=== PATIENT | female | born 1980 | race African-American/Black ===

== ENCOUNTER 2017-01-09 14:24 | Outpatient (CLI) | payer OTHER ==
[~2017-01-09 14:24] MED LIST: VITAMIN D31000 UNIT PO
[2017-01-09 15:58] LABS: HEMOGLOBIN 4.1 gm/dl (12.3-15.3)
== END 2017-01-10 00:28 | disposition home or self-care (01) ==
LOC: OPSV 14:24 → MED SURG 4 16:37 → OPSV 01-10 00:28
PROVIDERS: Internal Medicine Hematology & Oncology
DX: D64.9 Anemia, unspecified (principal)
CPT/HCPCS: 36415; 36430; 80053; 82607; 82728; 82747; 83540; 83921; 84238; 85014; 85018; 86850; 86900; 86901; 86920; 96374; J1940; P9016; Q0163

== ENCOUNTER 2017-03-13 14:46 | Inpatient (IN) | payer OTHER ==
[~2017-03-13] VITALS: Ht 152.4 cm; Wt 35.5 kg
[~2017-03-13 14:46] MED LIST changes: -ACID CONTROL150 MG PO; -ARTHRITIS PAIN650 M1 PO; -CALCIUM CITRAT200 MG PO; -CELEXA10 MG PO; -CO Q-10200 MG PO; -EPITOL200 MG PO; -LIPITOR TAB 2020 MG PO; -LOVAZA1 GM PO; -NEURONTIN 400400 MG PO; -VITAMIN C 500500 MG PO; -VITAMIN D31000 UNI1 PO
[2017-03-13 16:29] LABS: RED BLOOD COUNT 1.2 M/UL (4.00-5.10); WHITE BLOOD COUNT 3.1 K/UL (4.5-11.0)
[2017-03-13 16:49] LABS: BUN/CREATININE RATIO 35 (0-10)
[2017-03-13] MEDS ORDERED: ACID CONTROL150 MG PO (20:55)
[2017-03-13] MEDS ORDERED: EPITOL200 MG PO (20:56)
[2017-03-13] MEDS ORDERED: NEURONTIN 400400 MG PO (20:56)
[2017-03-13] MEDS ORDERED: LOVAZA1 GM PO (20:56)
[2017-03-13] MEDS ORDERED: CELEXA10 MG PO (20:57)
[2017-03-13] MEDS ORDERED: ARTHRITIS PAIN650 M1 PO (20:59)
[2017-03-13] MEDS ORDERED: LIPITOR TAB 2020 MG PO (20:59)
[2017-03-13] MEDS ORDERED: VITAMIN C 500500 MG PO (21:00)
[2017-03-13] MEDS ORDERED: VITAMIN D31000 UNI1 PO (21:00)
[2017-03-13] MEDS ORDERED: CO Q-10200 MG PO (21:00)
[2017-03-13] MEDS ORDERED: CALCIUM CITRAT200 MG PO (21:02)
[2017-03-14 09:57] LABS: BUN/CREATININE RATIO 40 (0-10)
[2017-03-14 10:00] LABS: WHITE BLOOD COUNT 3.1 K/UL (4.5-11.0)
[2017-03-14 10:16] LABS: HEMOGLOBIN 10.9 gm/dl (12.3-15.3); RED BLOOD COUNT 3.55 M/UL (4.00-5.10)
== END 2017-03-14 16:37 | disposition home or self-care (01) | DRG 812 ==
LOC: ER1 14:46 → M/S 17:20 → ZEROF 17:20 → M/S 20:32
PROVIDERS: Physician Assistant; ADMIT Hospitalist
PROC: 30233H1 Transfusion of Nonautologous Whole Blood into Peripheral Vein, Percutaneous Approach (ICD-10-PCS; principal; 2017-03-13)
DX: D64.9 Anemia, unspecified (principal); G91.9 Hydrocephalus, unspecified; G81.91 Hemiplegia, unspecified affecting right dominant side; E78.1 Pure hyperglyceridemia; G40.909 Epilepsy, unspecified, not intractable, without status epilepticus; Z90.710 Acquired absence of both cervix and uterus; Z79.899 Other long term (current) drug therapy; Z83.3 Family history of diabetes mellitus; Z84.89 Family history of other specified conditions; Z82.49 Family history of ischemic heart disease and other diseases of the circulatory system
CPT/HCPCS: 36415; 36430; 80048; 80053; 82272; 85025; 85610; 85730; 86850; 86900; 86901; 86920; 99283; C9113; J7050; P9016

== ENCOUNTER → 2017-03-13 | Outpatient (CLI) | payer OTHER ==
[~2017-03-13] MED LIST changes: +ACID CONTROL150 MG PO; +ARTHRITIS PAIN650 M1 PO; +CALCIUM CITRAT200 MG PO; +CELEXA10 MG PO; +CO Q-10200 MG PO; +EPITOL200 MG PO; +LIPITOR TAB 2020 MG PO; +LOVAZA1 GM PO; +NEURONTIN 400400 MG PO; +VITAMIN C 500500 MG PO; +VITAMIN D31000 UNI1 PO
[2017-03-13 14:06] LABS: RED BLOOD COUNT 1.2 M/UL (4.00-5.10); WHITE BLOOD COUNT 3.2 K/UL (4.5-11.0)
[2017-03-13 14:13] LABS: HEMOGLOBIN 3.6 gm/dl (12.3-15.3)
== END ==
LOC: LAB 13:30
PROVIDERS: Internal Medicine Hematology & Oncology
DX: D53.9 Nutritional anemia, unspecified (principal)
CPT/HCPCS: 36415; 85025

== ENCOUNTER 2017-06-25 15:30 | Outpatient (CLI) | payer OTHER ==
[~2017-06-25] VITALS: Ht 152.4 cm; Wt 38.6 kg
[~2017-06-25 15:30] MED LIST changes: +ACID CONTROL150 MG PO; +ARTHRITIS PAIN650 M1 PO; +CALCIUM CITRAT200 MG PO; +CELEXA10 MG PO; +CO Q-10200 MG PO; +EPITOL200 MG PO; +LIPITOR TAB 2020 MG PO; +LOVAZA1 GM PO; +NEURONTIN 400400 MG PO; +VITAMIN C 500500 MG PO; +VITAMIN D31000 UNI1 PO
[2017-06-25 17:12] LABS: HEMOGLOBIN 4.5 gm/dl (12.3-15.3)
== END 2017-06-26 00:30 | disposition home or self-care (01) ==
LOC: OPSV 15:30
PROVIDERS: Internal Medicine Hematology & Oncology
DX: D64.9 Anemia, unspecified (principal)
CPT/HCPCS: 36415; 36430; 85014; 85018; 86850; 86900; 86901; 86920; 96374; J1940; J7050; P9016; Q0163

== ENCOUNTER → 2021-05-31 | Outpatient (CLI) | payer OTHER ==
[~2021-05-31] MED LIST changes: +BANOPHEN25 M1 PO; +CALTRATE 600 +1 EAC1 PO; +CELEXA20 MG PO; +FENOFIBRIC ACI135 MG PO; +LACTULOSE20 GM/30 M PO; +NORCO 5-325 TA1 EACH PO; +VITAMIN D250000 UNIT PO; +ZANTAC150 MG PO
[2021-05-31 14:08] LABS: RED BLOOD COUNT 3.03 M/UL (4.00-5.10); WHITE BLOOD COUNT 4.4 K/UL (4.5-11.0)
[2021-05-31 15:21] LABS: BUN/CREATININE RATIO 23 (0-10)
== END ==
LOC: LAB 13:08 → OPSV 13:08
PROVIDERS: Family Medicine
DX: E78.5 Hyperlipidemia, unspecified (principal); E55.9 Vitamin D deficiency, unspecified
CPT/HCPCS: 36415; 80053; 80061; 84439; 84443; 84481; 85027

== ENCOUNTER → 2022-07-03 | Outpatient (CLI) | payer OTHER | LOC: EXRD 05-19 10:30 | DX: M81.0 Age-related osteoporosis without current pathological fracture (principal); M85.851 Other specified disorders of bone density and structure, right thigh | CPT/HCPCS: 77080 ==

== ENCOUNTER → 2022-07-11 | Outpatient (CLI) | payer OTHER ==
[2022-07-11 12:22] LABS: HEMOGLOBIN 12.7 gm/dl (12.3-15.3); RED BLOOD COUNT 3.47 M/UL (4.00-5.10); WHITE BLOOD COUNT 4.6 K/UL (4.5-11.0)
[2022-07-11 13:45] LABS: BUN/CREATININE RATIO 74 (0-10)
== END ==
LOC: LAB 11:36
PROVIDERS: Nurse Practitioner Family
DX: Z45.2 Encounter for adjustment and management of vascular access device (principal); G80.9 Cerebral palsy, unspecified; G40.909 Epilepsy, unspecified, not intractable, without status epilepticus; E55.9 Vitamin D deficiency, unspecified
CPT/HCPCS: 80053; 80061; 80156; 84439; 84443; 85025; 96523; J1642